=== PATIENT | female | born 1985 | race Caucasian/White ===

== ENCOUNTER 2021-01-17 10:22 | Observation (INO) | payer OTHER ==
[~2021-01-17] VITALS: Ht 165.1 cm; Wt 104.0 kg
[2021-01-17 11:03] LABS: CREATININE,URINE RANDOM 35.6 mg/dL
[2021-01-17 11:34] LABS: BASOPHILS % (AUTO) 0 % (0-1); EOSINOPHILS % (AUTO) 0 % (1-7); LYMPHOCYTES % (AUTO) 13 % (22-44); MEAN CORPUSCULAR HEMOGLOBIN 29.3 pg (27.0-34.8); MEAN CORPUSCULAR HGB CONC 33.9 g/dL (32.4-35.8); MEAN PLATELET VOLUME 10.7 fL (7.4-10.4); MONOCYTES % (AUTO) 3 % (2-9); NEUTROPHILS % (AUTO) 83 % (42-75); PLATELET COUNT 161 x10^3/uL (130-400); RED BLOOD COUNT 3.97 x10^6/uL (3.82-5.3); RED CELL DISTRIBUTION WIDTH 14.3 % (9.6-15.2)
[2021-01-17 11:40] LABS: MD NO
[2021-01-17 11:47] LABS: ALBUMIN 2.6 g/dL (3.4-5.0); ANION GAP 9 mmol/L (5-15); CALCIUM 9.2 mg/dL (8.5-10.1); CHLORIDE 109 mmol/L (98-107)
[2021-01-17 11:52] LABS: ALANINE AMINOTRANSFERASE 16 U/L (12-78); ALKALINE PHOSPHATASE 96 U/L (45-117); BILIRUBIN,TOTAL 0.2 mg/dL (0.2-1.0); CREATININE 0.67 mg/dL (0.55-1.02); TOTAL PROTEIN 6.5 g/dL (6.4-8.2)
[2021-01-17 11:53] LABS: BILIRUBIN, DIRECT < 0.1 mg/dL (0.1-0.2)
[2021-01-17] MEDS ORDERED: BETAMETHASONE 6 MG/ML, 5ML IM ONE (16:54)
[2021-01-17] MEDS: BETAMETHASONE 6 MG/ML, 5ML IM SCH (17:00)
[2021-01-17] MEDS ORDERED: PRENATAL VIT/IRON/FA 1 EACH TABLET PO SCH (21:00)
[2021-01-17] MEDS ORDERED: ASPIRIN 81 MG TABLET CHEW PO SCH (21:00)
[2021-01-18] MEDS: BETAMETHASONE 6 MG/ML, 5ML IM SCH (14:48)
== END 2021-01-18 15:24 | disposition home or self-care (01) ==
LOC: LDOP 10:22 → LDIP 01-18 06:38
PROVIDERS: ADMIT Obstetrics & Gynecology Maternal & Fetal Medicine; ATTEND Obstetrics & Gynecology Maternal & Fetal Medicine
DX: O36.5930 Maternal care for other known or suspected poor fetal growth, third trimester, not applicable or unspecified (principal); O13.3 Gestational [pregnancy-induced] hypertension without significant proteinuria, third trimester; O09.523 Supervision of elderly multigravida, third trimester; Z3A.33 33 weeks gestation of pregnancy
CPT/HCPCS: 36415; 59025; 80053; 82248; 82570; 83615; 84156; 84550; 85025; 86592; 86850; 86900; 96372; G0378; J0702